=== PATIENT | female | born 1950 | race Caucasian/White ===

== ENCOUNTER 2016-11-21 13:38 | Emergency (ER) | payer MEDICARE, OTHER ==
--- NOTE | 2016-11-21 14:16 | ED ---
Fall HPI - General Chief Complaint: Fall Stated Complaint: Fall/Leg pain Time Seen by Provider: 11/21/16 14:02 Source: patient, family, RN notes reviewed, old records reviewed Mode of arrival: wheelchair - History of Present Illness Initial Comments: Patient is a 66-year-old female with chief complaint of left knee pain. Patient reports that she was standing on a bucket to fix her door frame. Patient reports that she stepped off the bucket and landed on her left knee and it bent forward. Patient has a history of a patellar fracture. She reports that 2 years ago she had multiple screws and wires placed in her knee. She reports that after the injury she was unable to ambulate. She denies any ankle pain and peripheral paresthesias. She reports that afterwards she put her knee in an immobilizer and came directly to the emergency department. She reports that she is unable to bear any weight on the left leg. Patient denies any recent fever, chills, shortness of breath, chest pain, back pain, abdominal pain , nausea vomiting, numbness or tingling, dysuria or hematuria, constipation or diarrhea, headaches or visual changes, or any other current symptoms. During her fall she denies any head injury or loss of consciousness or any other extremity injuries. - Related Data Home Medications Medication Instructions Recorded Confirmed Acid Drafter 1 tab PO DAILY PRN 08/14/14 09/15/14 Aspirin EC [Ecotrin] 325 mg PO DAILY 08/14/14 09/15/14 Fluticasone/Salmeterol [Advair 1 inhalation PO BID 08/14/14 09/15/14 250-50 Diskus] Levothyroxine Sodium [Synthroid] 25 mcg PO DAILY 08/14/14 09/15/14 Lisinopril-Hctz 10-12.5 mg 1 each PO DAILY 08/14/14 09/15/14 [Zestoretic 10-12.5] Loratadine [Claritin] 10 mg PO DAILY 08/14/14 09/15/14 Multivitamins, Thera [Multivitamin] 1 each PO DAILY 08/14/14 09/15/14 Potassium (Unknown Dose) 1 tab PO DAILY PRN 08/14/14 09/15/14 Ventolin Inhaler (Unknown Dose) 1 puff INHALATION DIRECTED PRN 08/14/1409/15 buPROPion SR [Wellbutrin Sr] 300 mg PO DAILY 08/14/14 09/15/14 Previous Rx's Medication Instructions Recorded Hydrocodone/Acetaminophen [[place] 1 each PO Q6HR PRN #20 tab 09/15/14 5-325] HYDROcodone/APAP 10-325MG [[place] 1 tab PO Q6H PRN #20 tab 11/21/16 10-325] Allergies Allergy/AdvReac Type Severity Reaction Status Date / Time No Known Allergies Allergy Verified 11/21/16 13:45 Review of Systems ROS Statement: Those systems with pertinent positive or pertinent negative responses have been documented in the HPI. ROS Other: All systems not noted in ROS Statement are negative. Past Medical History Past Medical History: COPD, Hypertension Additional Past Medical History / Comment(s): osteoporosis History of Any Multi-Drug Resistant Organisms: None Reported Past Surgical History: Hysterectomy, Joint Replacement, Orthopedic Surgery, Tonsillectomy Additional Past Surgical History / Comment(s): lt knee Past Psychological History: No Psychological Hx Reported Smoking Status: Current some day smoker Past Alcohol Use History: None Reported Past Drug Use History: None Reported General Exam - General Exam Comments Initial Comments: Pleasant 66-year-old female. No acute distress. Limitations: no limitations General appearance: alert, in no apparent distress Head exam: Present: atraumatic, normocephalic, normal inspection Eye exam: Present: normal appearance, PERRL, EOMI. Absent: scleral icterus, conjunctival injection, periorbital swelling ENT exam: Present: normal exam, normal oropharynx, mucous membranes moist, TM's normal bilaterally Neck exam: Present: normal inspection. Absent: tenderness, meningismus, lymphadenopathy Respiratory exam: Present: normal lung sounds bilaterally. Absent: respiratory distress, wheezes, rales, rhonchi, stridor Cardiovascular Exam: Present: regular rate, normal rhythm, normal heart sounds. Absent: systolic murmur, diastolic murmur, rubs, gallop, clicks GI/Abdominal exam: Present: soft, normal bowel sounds. Absent: distended, tenderness, guarding, rebound, rigid Extremities exam: Present: normal capillary refill. Absent: normal inspection, full ROM, tenderness, pedal edema, joint swelling, calf tenderness Left Knee exam: Present: tenderness, swelling (Patient has significant sent tenderness and swelling over the knee. Patient reports she is unable to flex or extend her knee or bear weight.), deformity. Absent: normal inspection, full ROM, abrasion, laceration, ecchymosis, crepitus, dislocation, erythema, effusion Lower Leg exam: Present: normal inspection, full ROM Ankle exam: Present: normal inspection, full ROM Foot/Toe exam: Present: normal inspection, full ROM Neurovascular tendon exam: Present: no vascular compromise Gait: not tested/not observed Back exam: Present: normal inspection Neurological exam: Present: alert, oriented X3, CN II-XII intact Psychiatric exam: Present: normal affect, normal mood Skin exam: Present: warm, dry, intact, normal color. Absent: rash Course Vital Signs 11/21/16 13:40 Temperature 97.0 F L Pulse Rate 93 Respiratory 20 Rate Blood Pressure 133/60 O2 Sat by Pulse 97 Oximetry Procedures - Orthopedic Splinting/Casting Injury #1 Side: left Lower Extremity Injury Location: knee Lower Extremity Immobilizer: knee immobilizer Medical Decision Making - Medical Decision Making Patient is a 6-year-old female with chief complaint of left knee pain after falling and tripping over the last standing on a bucket. Patient x-ray was reviewed and shows evidence of labial plateau fracture. She does have a previous history of patella fracture. She reports that her surgeon [facility]. She Wants Us to Contact Her Surgeon. We Did Contact with the Surgeon He Reports That She Should Be Placed in an Immobilizer and Follow-Up Tomorrow for That on Thursday with the Office. The Meantime Patient Needs to Remain Nonweightbearing and Ambulate with Crutches. Patient Was Given a Knee Immobilizer and a Prescription for Pain Medication and Crutches. Patient Understands That She Needs to Follow-Up As Soon As Possible. Patient Understands Treatment Plan Will Comply. - Radiology Data Radiology results: report reviewed Moderate knee joint effusion suspicion for nondisplaced intra-articular medial and lateral tibial plateau fractures. There may be minimal depression of the lateral tibial plateau. Disposition Clinical Impression: Fracture of left tibial plateau Disposition: HOME SELF-CARE Condition: Good Additional Instructions: Patient advised to call her orthopedic physician as soon as possible to schedule an appointment tomorrow. Only ambulate with crutches. Nonweightbearing over the leg until seen by orthopedic. Return to emergency department if any alarming signs or symptoms occur. Prescriptions: HYDROcodone/APAP 10-325MG [[place] 10-325] 1 tab PO Q6H PRN #20 tab PRN Reason: Pain Referrals: Douglas Caraballo MD [Primary Care Provider] - 1-2 days Pancho Calero, MODESTA [PHYSICIAN POWER TRANSFORMER ASSEMBLER] - 1-2 days Time of Disposition: 15:49
--- NOTE | 2016-11-21 14:47 | XR ---
EXAMINATION TYPE: XR knee 4V LT DATE OF EXAM: 11/21/2016 2:28 PM COMPARISON: 09/15/2014 HISTORY: 66-year-old female falling injury today, previous patellar surgery TECHNIQUE: 3 views FINDINGS: Previous tension screw fixation of the patella. The patellar fracture appears healed. There may be an osteochondral defect along the articular surface of the patella. On the oblique view, there is some intra-articular lucency seen at the level of the medial tibial plateau. There may be additional lucen cy which extends to the articular surface of the lateral tibial plateau which appears minimally depre ssed. Underlying moderate knee joint effusion. IMPRESSION: Moderate knee joint effusion and suspicion for nondisplaced, intra-articular medial and lateral tibia l plateau fractures. There may be minimal depression of the lateral tibial plateau.
[2016-11-21 16:14] VITALS: BP 136/69; PULSE 87; RESP 18; TEMP 97.9
== END 2016-11-21 16:23 | disposition home or self-care (01) ==
LOC: EC 13:38
DX: S82.102A Unspecified fracture of upper end of left tibia, initial encounter for closed fracture (principal); J44.9 Chronic obstructive pulmonary disease, unspecified; I10 Essential (primary) hypertension; F17.200 Nicotine dependence, unspecified, uncomplicated; Z79.82 Long term (current) use of aspirin; Z79.51 Long term (current) use of inhaled steroids; Z79.899 Other long term (current) drug therapy; W01.0XXA Fall on same level from slipping, tripping and stumbling without subsequent striking against object, initial encounter; Y92.009 Unspecified place in unspecified non-institutional (private) residence as the place of occurrence of the external cause
CPT/HCPCS: 99283

== ENCOUNTER → 2017-03-03 | Outpatient (CLI) | payer MEDICARE, OTHER ==
--- NOTE | 2017-03-04 10:51 | ECHOF ---
Referral Reason:SOB MEASUREMENTS -------- HEIGHT: 132.1 cm WEIGHT: 62.6 kg BP: IVSd: 1.2 cm (0.6 - 1.1) LVIDd: 3.6 cm (3.9 - 5.3) LVPWd: 1.1 cm (0.6 - 1.1) IVSs: 1.5 cm LVIDs: 3.0 cm LVPWs: 1.2 cm LA Diam: 3.0 cm (2.7 - 3.8) LAESV Index (A-L): 28.87 ml/m Ao Diam: 3.4 cm (2.0 - 3.7) AV Cusp: 1.8 cm (1.5 - 2.6) LA Diam: 3.8 cm (2.7 - 3.8) MV EXCURSION: 14.924 mm (> 18.000) MV EF SLOPE: 69 mm/s (70 - 150) EPSS: 0.3 cm MV E Azael: 0.73 m/s MV DecT: 225 ms MV A Azael: 1.21 m/s MV E/A Ratio: 0.60 FINDINGS -------- Sinus rhythm. This was a technically adequate study. There is mild concentric left ventricular hypertrophy. Overall left ventricular systolic function is low-normal with, an EF between 50 - 55 %. The right ventricle is normal in size. Normal LA size by volume 22+/-6 ml/m2. The right atrial size is normal. There is mild aortic valve sclerosis. There is no evidence of aortic regurgitation. Mild mitral annular calcification present. Mild mitral regurgitation is present. Mild tricuspid regurgitation present. There is no evidence of pulmonary hypertension. The right ventricular systolic pressure, as measured by Doppler, is {RVSP}. There is no pulmonic regurgitation present. The aortic root size is normal. There is no pericardial effusion. CONCLUSIONS -------- 1. There is mild concentric left ventricular hypertrophy. 2. Overall left ventricular systolic function is low-normal with, an EF between 50 - 55 %. 3. There is mild aortic valve sclerosis. 4. Mild mitral annular calcification present. 5. Mild mitral regurgitation is present. 6. Mild tricuspid regurgitation present. 7. There is no evidence of pulmonary hypertension. 8. The right ventricular systolic pressure, as measured by Doppler, is {RVSP}. 9. There is no pulmonic regurgitation present. PLANNING DIRECTOR: Annalisa Pearson RDCS
== END | disposition home or self-care (01) ==
LOC: RADECHMAIN 13:13
PROVIDERS: ATTEND Family Medicine
DX: I08.3 Combined rheumatic disorders of mitral, aortic and tricuspid valves (principal)
CPT/HCPCS: 93306

== ENCOUNTER → 2017-05-01 | Outpatient (CLI) | payer MEDICARE, OTHER ==
--- NOTE | 2017-05-01 13:20 | XR ---
EXAMINATION TYPE: XR shoulder complete LT DATE OF EXAM: 05/01/2017 COMPARISON: NONE HISTORY: Pain TECHNIQUE: Shoulder examined in 3 FINDINGS: The humeral head articulates with the glenoid. The acromio-clavicular junction is normal. No acute fractures or dislocations are evident. A follow up study can be performed 7-10 days from acute trauma for continued pain. IMPRESSION: 1. Normal Shoulder
== END | disposition home or self-care (01) ==
LOC: RADXRMAIN 12:38
PROVIDERS: ATTEND Family Medicine
DX: M25.512 Pain in left shoulder (principal)

== ENCOUNTER → 2017-05-12 | Outpatient (CLI) | payer MEDICARE, OTHER ==
--- NOTE | 2017-05-12 23:20 | MR ---
EXAMINATION TYPE: MR shoulder LT wo con DATE OF EXAM: 05/12/2017 COMPARISON: NONE HISTORY: Shoulder pain TECHNIQUE: Multiplanar, multisequence imaging of the left shoulder is performed without contrast. FINDINGS: There is shoulder joint effusion. The subscapularis tendon is intact. The glenoid doni appear intact . There is obliteration of the subacromial joint space with retraction of the supraspinatus tendon. T here is spurring at the AC joint. There is spurring at the glenohumeral joint. On the T2 images there is increased signal in the subchondral humeral head. This area has decreased signal on the T1 images . IMPRESSION: Large rotator cuff tear with retraction of the supraspinatus tendon. Severe subacromial joint space n arrowing and impingement. Shoulder joint effusion. 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
== END | disposition home or self-care (01) ==
LOC: RADMRIMAIN 15:57
PROVIDERS: ATTEND Family Medicine
DX: M75.102 Unspecified rotator cuff tear or rupture of left shoulder, not specified as traumatic (principal); M19.012 Primary osteoarthritis, left shoulder; M25.812 Other specified joint disorders, left shoulder

== ENCOUNTER → 2017-06-12 | Outpatient (CLI) | payer MEDICARE, OTHER ==
[2017-06-12 11:04] LABS: Blood Urea Nitrogen 11 mg/dL (7-17); Non-African American GFR(MDRD) >60 (>60 ml/min/1.73 sqM)
--- NOTE | 2017-06-12 13:06 | CT ---
EXAMINATION TYPE: CT soft tissue neck w con DATE OF EXAM: 06/12/2017 COMPARISON: NONE HISTORY: loss of voice CT DLP: 289.7 mGycm CONTRAST: Patient injected with 100 mL of Omnipaque 300. TECHNIQUE: Axial images at 3 mm thick sections. Reconstructed images in the coronal plane and sagitt al plane are reviewed. FINDINGS: Limited CT sections are obtained the lung apices. The lung apices appear clear. CT neck: The torus tubarius and fossa of Rosenmuller are normal. Mis Director spaces are normal. Para nasal sinuses and mastoid air cells are clear. Parotid glands appear normal and symmetrical. Submandibular glands, are normal. Parapharyngeal spac es are normal. No suspicious adenopathy within the neck is evident. There are scattered small lymph nodes in the jugulodigastric regions and in the anterior triangles. Tiny submental lymph nodes may be present. The hypopharynx appears within normal limits. There is asymmetry of the vocal cord level with a midline right vocal cord Thyroid as visualized is normal. Within the pretracheal space is a 3.7 x 2.5 cm mass. This is incompletely visualized. This extends to the right peribronchial level and out of the [id number]. Primary and metastatic lesion should be considered. Emphysematous changes are within the lung botello. There is a spiculated mass in the anter ior peripheral right upper lobe measuring an estimated 1.2 x 1.4 cm. Series 3 image 9 on lung windows . The aortopulmonic window appears clear. There is a left supraclavicular enlarged lymph node or mass just lateral to the thyroid measuring 3.4 x 3.4 cm. There are scattered enlarged but more intermediate-sized lymph nodes slightly enlarged by CT criteria within the left supraclavicular region measuring up to 1.0-1.2 cm in size. Osseous structures are normal. Some facet degenerative changes noted within the cervical spine. IMPRESSIONS: 1. Right apical spiculated mass with an enlarged mass or lymph node within the pretracheal mediastinu m suspicious for possible lung cancer. Metastatic disease could be considered. There are several left supraclavicular lymph nodes enlarged, the largest measuring 3.[address] chest is recommen ded for additional workup. 2. Results were called to the office by Dr. Gonzalze by telephone at the time of interpretation.
== END | disposition home or self-care (01) ==
LOC: RADCTMAIN 10:12
PROVIDERS: ATTEND Otolaryngology
DX: R59.0 Localized enlarged lymph nodes (principal)
CPT/HCPCS: 82565; 84520; 70491; 36415; Q9967

== ENCOUNTER → 2017-06-17 | Outpatient (CLI) | payer MEDICARE, OTHER ==
[2017-06-17 18:14] LABS: Blood Urea Nitrogen 14 mg/dL (7-17); Non-African American GFR(MDRD) >60 (>60 ml/min/1.73 sqM)
--- NOTE | 2017-06-18 08:11 | CT ---
EXAMINATION TYPE: CT chest w con DATE OF EXAM: 06/17/2017 COMPARISON: CT soft tissue neck dated 06/12/[address] thorax of 05-16-14. HISTORY: Hoarseness and abnormal neck scan CT DLP: 445 mGycm. Automated Exposure Control for Dose Reduction was Utilized. TECHNIQUE: CT scan of the thorax is performed following with IV Contrast, patient injected with 100 mL of Omnipaque 300. FINDINGS: LUNGS AND MEDIASTINUM: Superimposed upon a background of moderate centrilobular emphysematous changes and peripheral basilar intralobular septal thickening with few areas of early honeycombing in the li ngula suggesting UIP pattern of pulmonary process there is a right upper lobe spiculated nodule on se javier 4 image 17 that has developed from the prior exam of 05-16-14. This is subsolid with few periphera l air bronchograms with the predominant solid portion measuring only 5 mm at the right lateral margin , however within predominant nodule measures approximately 1.6 x 1.4 cm. Additionally soft tissue attenuated mass within the pretracheal and right paratracheal space is prese nt on series 3 image 19 measuring approximately 4.0 x 3.1 x 4.5 cm placing mass effect upon the trach ea at its right lateral margin and deviating it towards the left. Extensive left supraclavicular nichole opathy is also seen with mass effect upon the left lobe of the thyroid. Conglomeration of lymph nodes measures approximately 3.7 x 3.1 cm on series 3 image 7 creating mass effect upon the left subclavia n artery with smaller more superior and anterior lymph nodes also seen in the left supraclavicular re gion. Minimally enlarged 1.2 cm short axis right hilar lymph node is seen and prominent but nonenlarg ed subcarinal lymph node is present. Central calcification is seen within an inferior right hilar nod e near the azygos esophageal recess. No axillary or internal mammary adenopathy is seen. No epicardia l adenopathy. Calcified right lower lobe stable granulomas are present as well as subcentimeter left lower lobe sup erior segment pulmonary nodule on series 4 image 30 which is unchanged dating back to 2013 and should be considered benign. OTHER: Two sclerotic foci within the T1 and C6 vertebrae are appreciated on series 7 image 59 and cou ld relate to degenerative change or less likely osseous metastasis. IMPRESSION: 1. New spiculated subsolid right upper lobe pulmonary nodule measuring 1.6 x 1.4 cm highly concerning for malignancy such as adenocarcinoma superimposed upon moderate pulmonary emphysema with suggestion of peripheral basilar lower lung fibrosis. Percutaneous biopsy and/or staging PET CT could be perfor med. 2. Right pretracheal and paratracheal soft tissue mass that is favored to represent metastatic adenop athy rather than the patient's primary carcinoma. Left supraclavicular adenopathy measures up to 3.7 cm. 3. Sclerotic foci within the T1 and C6 vertebrae could relate to degenerative change or less likely o sseous metastasis. 4. Lower lobe nodules, stable from 2014 that should be considered benign sequela of granulomatous [place] nge rather than metastasis.
== END | disposition home or self-care (01) ==
LOC: RADCTMAIN 17:44
PROVIDERS: ATTEND Otolaryngology
DX: C34.11 Malignant neoplasm of upper lobe, right bronchus or lung (principal); J43.8 Other emphysema; M79.89 Other specified soft tissue disorders; G95.89 Other specified diseases of spinal cord
CPT/HCPCS: 82565; 84520; 71260; 36415; Q9967

== ENCOUNTER → 2017-07-04 | Outpatient (CLI) | payer MEDICARE, OTHER ==
--- NOTE | 2017-07-06 09:40 | PE ---
EXAMINATION TYPE: PET CT fusion skull to thigh DATE OF EXAM: 07/06/2017 CLINICAL HISTORY: Left-sided lung mass possible cancer TECHNIQUE: Following the intravenous administration of 15.02 mCi of F-18 FDG, whole body images are performed from the skull base to the midthigh. Images are reviewed on the computer in the coronal, axial, and sagittal planes. Reconstructed rotating images are created on independent workstation and reviewed on the computer. A non-contrast CT is performed in conjunction with the PET scan. COMPARISON: CT chest June 17, 2017. CT neck June 12, 2017. CT abdomen and pelvis April 27 FINDINGS: SKULL BASE AND NECK: Corresponding to recent neck CT at level of left thyroid gland supraclavicular region there is hypermetabolic large mass measuring 3.5 x 3.2 cm on axial image 49 with max SUV of 16 .61. There are several additional hypermetabolic subcentimeter lymph nodes seen near axial image 41 with m ax SUV of 9.23. CHEST, MEDIASTINUM, AND HILAR REGION: There is background of moderate emphysematous change. There is 8 x 6 mm hypermetabolic spiculated nodule right upper lobe on axial image 66, with mild hypermetaboli c uptake max SUV is 2.03. There is abnormal hypermetabolic right paratracheal/pericarinal lymph node measuring 2.9 x 2.6 cm on axial image 69 with max SUV of 16.39. Elevated left hemidiaphragm is present. ABDOMEN AND PELVIS: No suspicious hypermetabolic uptake is seen. No adrenal masses are noted. The leisa dder extends into right pelvis mimicking adnexal lesion. OSSEOUS STRUCTURES: No suspicious hypermetabolic uptake is present. OTHER CT: Visualized brain parenchyma shows periventricular low-attenuation consistent with product o f chronic small vessel ischemic change. There is moderate right greater than left calcified plaque at bilateral carotid bulbs. There is coronary artery calcification which is noted marker for coronary artery disease. Gallbladder has distended margins. Sigmoid colonic diverticulosis is present. Uterus is surgically absent or markedly atrophic in appearance. IMPRESSION: Left neck and right paratracheal metastatic adenopathy or neoplasm. Suspect additional gregg praclavicular subcentimeter adenopathy. Borderline right upper lobe subcentimeter nodule noted. No me tastatic disease below diaphragm identified.
== END | disposition home or self-care (01) ==
LOC: RADPETMAIN 12:14
PROVIDERS: ATTEND Internal Medicine Critical Care Medicine
DX: R91.1 Solitary pulmonary nodule (principal)
CPT/HCPCS: 78815; A9552

== ENCOUNTER 2018-01-11 15:49 | Inpatient (IN) | payer MEDICARE, OTHER ==
[2018-01-11] MEDS ORDERED: ALBUTEROL NEBULIZED 2.5 MG/3 ML INHALATION STA (16:09)
[2018-01-11] MEDS ORDERED: methylPREDNISolone SOD SUCCI 125 MG/2 ML VIAL IV STA (16:09)
[2018-01-11] MEDS ORDERED: IPRATROPIUM 0.5 MG/2.5 ML NEBU INHALATION STA (16:09)
--- NOTE | 2018-01-11 16:12 | ED ---
General Adult HPI - General Source: patient, RN notes reviewed Mode of arrival: wheelchair Limitations: no limitations <Kevin Rodriguez - Last Filed: 01/11/18 16:13> <Miguel A Li - Last Filed: 01/11/18 18:27> - General Chief complaint: Shortness of Breath Stated complaint: Sob Time Seen by Provider: 01/11/18 15:50 - History of Present Illness Initial comments: This is a 67-year-old female presents emergency Department complaining of shortness of breath. Patient states his been ongoing for a couple of weeks. Patient states she's had no pain. Patient denies any palpitations. Patient denies any fever chills. Patient states she does have a cough occasionally. Patient denies any oxygen at home. Patient denies headache patient denies numbness weakness. Patient denies any swelling legs or calf pain. Patient denies abdominal pain patient denies nausea vomiting diarrhea. Patient states she was diagnosed with lung cancer last March. Patient states she receiving chemotherapy. (Kevin Rodriguez) - Related Data Home Medications Medication Instructions Recorded Confirmed Levothyroxine Sodium [Synthroid] 25 mcg PO DAILY 08/14/14 01/11/18 Loratadine [Claritin] 10 mg PO DAILY 08/14/14 01/11/18 Albuterol Nebulized [Ventolin 2.5 mg INHALATION RT-Q6H PRN 07/03/17 01/11/18 Nebulized] Fluticasone/Salmeterol [Advair 1 inhalation PO RT-BID 07/03/17 01/11/18 500-50 Diskus] Tiotropium [place] [Spiriva] 1 cap INHALATION RT-DAILY 07/03/17 01/11/18 Acetaminophen-Codeine 300-30mg 1 tab PO Q6H PRN 01/11/18 01/11/18 [Tylenol #3] Albuterol Inhaler [Ventolin Hfa 1 - 2 puff INHALATION Q6HR PRN 01/11/18 01/11/18 Inhaler] LORazepam [Ativan] 0.5 mg PO Q6H PRN 01/11/18 01/11/18 Lisinopril-Hctz 20-25 mg 1 tab PO DAILY 01/11/18 01/11/18 [Zestoretic 20-25] Pyridoxine [Vitamin B-6] 50 mg PO BID 01/11/18 01/11/18 Sertraline [Zoloft] 50 mg PO DAILY 01/11/18 01/11/18 Sulfamethox-Tmp 800-160Mg [Bactrim 1 tab PO BID 01/11/18 01/11/18 DS 800-160 mg] predniSONE 10 mg PO DAILY 01/11/18 01/11/18 Allergies Allergy/AdvReac Type Severity Reaction Status Date / Time No Known Allergies Allergy Verified 01/11/18 17:39 Review of Systems ROS Other: All systems not noted in ROS Statement are negative. <Kevin Rodriguez - Last Filed: 01/11/18 16:13> ROS Other: All systems not noted in ROS Statement are negative. <Miguel A Li - Last Filed: 01/11/18 18:27> ROS Statement: Those systems with pertinent positive or pertinent negative responses have been documented in the HPI. Past Medical History Past Medical History: Cancer, COPD, Hypertension Additional Past Medical History / Comment(s): osteoporosis, lung cancer History of Any Multi-Drug Resistant Organisms: None Reported Past Surgical History: Hysterectomy, Orthopedic Surgery Additional Past Surgical History / Comment(s): lt knee - repaired, wires and pins holding knee together, right shoulder rotator cuff repair Past Anesthesia/Blood Transfusion Reactions: Postoperative Nausea & Vomiting ( PONV) Additional Past Anesthesia/Blood Transfusion Reaction / Comment(s): occasional nausea afterwards Past Psychological History: Depression Smoking Status: Current every day smoker Past Alcohol Use History: None Reported Past Drug Use History: None Reported <Kevin Rodriguez - Last Filed: 01/11/18 16:13> General Exam Limitations: no limitations <Kevin Rodriguez - Last Filed: 01/11/18 16:13> <Miguel A Li - Last Filed: 01/11/18 18:27> - General Exam Comments Initial Comments: GENERAL: Patient is well-developed and well-nourished. Patient is nontoxic and well- hydrated and is in mild distress. ENT: Neck is soft and supple. No significant lymphadenopathy is noted. Oropharynx is clear. Moist mucous membranes. EYES: The sclera were anicteric and conjunctiva were pink and moist. Extraocular movements were intact and pupils were equal round and reactive to light. Eyelids were unremarkable. PULMONARY: Patient is a very wheezing diffusely. CARDIOVASCULAR: There is a regular rate and rhythm without any murmurs gallops or rubs. ABDOMEN: Soft and nontender with normal bowel sounds. No palpable organomegaly was noted. There is no palpable pulsatile mass. SKIN: Skin is clear with no lesions or rashes and otherwise unremarkable. NEUROLOGIC: Patient is alert and oriented x3. Cranial nerves II through XII are grossly intact. Motor and sensory are also intact. Normal speech, volume and content. Symmetrical smile. MUSCULOSKELETAL: Normal extremities with adequate strength and full range of motion. No lower extremity swelling or edema. No calf tenderness. LYMPHATICS: No significant lymphadenopathy is noted PSYCHIATRIC: Normal psychiatric evaluation. (Kevin Rodriguez) Course <Kevin Rodriguez - Last Filed: 01/11/18 16:13> <Miguel A Li - Last Filed: 01/11/18 18:27> Vital Signs 01/11/18 01/11/18 01/11/18 15:50 16:39 17:02 Temperature 98 F Pulse Rate 121 H 107 H 110 H Respiratory 32 H Rate Blood Pressure 122/81 O2 Sat by Pulse 90 L Oximetry - Reevaluation(s) Reevaluation #1: 01/11/18 18:15 Evaluation the patient by me reveals diminished breath sounds patient is short of breath has some expiratory wheezing. She states she had to stand up to be able to breathe better. 01/11/18 18:16 The patient does have a repeat DuoNeb treatment in order (Miguel A Li) Reevaluation #2: 01/11/18 18:26 I did discuss findings with the admitting service patient will be admitted consultation with pulmonary medicine (Miguel A Li) Medical Decision Making <Kevin Rodriguez - Last Filed: 01/11/18 16:13> - Lab Data Result diagrams: 01/11/18 16:10 01/11/18 16:10 <Miguel A Li - Last Filed: 01/11/18 18:27> - Medical Decision Making EKG shows sinus tachycardia at 112 bpm MS interval 128 QRSs 84 QT interval 320 QTC is 436. There is no ST segment elevation or depression. Patient received a double treatment of albuterol and Atrovent. Patient also received Solu-Medrol. The patient's care will be transferred to Dr. Li 5 PM (Kevin Rodriguez) - Lab Data Lab Results 01/11/18 01/11/18 01/11/18 Range/Units 16:10 16:10 16:10 WBC 7.0 (3.8-10.6) k/uL RBC 3.70 L (3.80-5.40) m/uL Hgb 12.8 (11.4-16.0) gm/dL Hct 36.7 (34.0-46.0) % MCV 99.3 (80.0-100.0) fL MCH 34.6 (25.0-35.0) pg MCHC 34.9 (31.0-37.0) g/dL RDW 14.4 (11.5-15.5) % Plt Count 230 (150-450) k/uL Neutrophils % 81 % Lymphocytes % 12 % Monocytes % 6 % Eosinophils % 0 % Basophils % 0 % Neutrophils # 5.6 (1.3-7.7) k/uL Lymphocytes # 0.9 L (1.0-4.8) k/uL Monocytes # 0.4 (0-1.0) k/uL Eosinophils # 0.0 (0-0.7) k/uL Basophils # 0.0 (0-0.2) k/uL PT (9.0-12.0) sec INR (<1.2) APTT (22.0-30.0) sec D-Dimer (<0.60) mg/L FEU Sodium 120 L* (137-145) mmol/L Potassium 4.1 (3.5-5.1) mmol/L Chloride 84 L (98-107) mmol/L Carbon Dioxide 26 (22-30) mmol/L Anion Gap 10 mmol/L BUN 16 (7-17) mg/dL Creatinine 0.57 (0.52-1.04) mg/dL Est GFR (CKD-EPI)AfAm >90 (>60 ml/min/1.73 sqM) Est GFR (CKD-EPI)NonAf >90 (>60 ml/min/1.73 sqM) Glucose 105 H (74-99) mg/dL Calcium 9.1 (8.4-10.2) mg/dL Magnesium 1.4 L (1.6-2.3) mg/dL Total Bilirubin 0.4 (0.2-1.3) mg/dL AST 25 (14-36) U/L ALT 30 (9-52) U/L Alkaline Phosphatase 73 (38-126) U/L Total Creatine Kinase 80 (30-135) U/L CK-MB (CK-2) 3.8 H* (0.0-2.4) ng/mL CK-MB (CK-2) Rel Index 4.8 Troponin I <0.012 (0.000-0.034) ng/mL Total Protein 6.3 (6.3-8.2) g/dL Albumin 4.1 (3.5-5.0) g/dL 01/11/18 Range/Units 16:10 WBC (3.8-10.6) k/uL RBC (3.80-5.40) m/uL Hgb (11.4-16.0) gm/dL Hct (34.0-46.0) % MCV (80.0-100.0) fL MCH (25.0-35.0) pg MCHC (31.0-37.0) g/dL RDW (11.5-15.5) % Plt Count (150-450) k/uL Neutrophils % % Lymphocytes % % Monocytes % % Eosinophils % % Basophils % % Neutrophils # (1.3-7.7) k/uL Lymphocytes # (1.0-4.8) k/uL Monocytes # (0-1.0) k/uL Eosinophils # (0-0.7) k/uL Basophils # (0-0.2) k/uL PT 9.5 (9.0-12.0) sec INR 1.0 (<1.2) APTT 22.1 (22.0-30.0) sec D-Dimer 0.46 (<0.60) mg/L FEU Sodium (137-145) mmol/L Potassium (3.5-5.1) mmol/L Chloride (98-107) mmol/L Carbon Dioxide (22-30) mmol/L Anion Gap mmol/L BUN (7-17) mg/dL Creatinine (0.52-1.04) mg/dL Est GFR (CKD-EPI)AfAm (>60 ml/min/1.73 sqM) Est GFR (CKD-EPI)NonAf (>60 ml/min/1.73 sqM) Glucose (74-99) mg/dL Calcium (8.4-10.2) mg/dL Magnesium (1.6-2.3) mg/dL Total Bilirubin (0.2-1.3) mg/dL AST (14-36) U/L ALT (9-52) U/L Alkaline Phosphatase (38-126) U/L Total Creatine Kinase (30-135) U/L CK-MB (CK-2) (0.0-2.4) ng/mL CK-MB (CK-2) Rel Index Troponin I (0.000-0.034) ng/mL Total Protein (6.3-8.2) g/dL Albumin (3.5-5.0) g/dL Critical Care Time <Kevin Rodriguez - Last Filed: 01/11/18 16:13> Critical Care Time: Yes <Miguel A Li - Last Filed: 01/11/18 18:27> Critical Care Time: 31 minutes of critical care time which includes initial sign out as well as reevaluation the patient discussion with the admitting physician discussed case with the patient documentation the above and admission orders. (Miguel A Li) Disposition <Kevin Rodriguez - Last Filed: 01/11/18 16:13> <Miguel A Li - Last Filed: 01/11/18 18:27> Clinical Impression: Acute exacerbation of chronic obstructive airways disease, Adult respiratory distress syndrome, Lung cancer, Hyponatremia Disposition: ADMITTED IP TO THIS [facility] Condition: Stable Referrals: Miguel A Lucia DO [Primary Care Provider] - 1-2 days
[2018-01-11 16:30] LABS: Basophils % (A) 0 %; Eosinophils % (A) 0 %; HCT 36.7 % (34.0-46.0); HGB 12.8 gm/dL (11.4-16.0); Lymphocytes # (A) 0.9 k/uL (1.0-4.8); Lymphocytes % (A) 12 %; MCH 34.6 pg (25.0-35.0); MCHC 34.9 g/dL (31.0-37.0); MCV 99.3 fL (80.0-100.0); Mean Platelet Volume 7.2; Monocytes # (A) 0.4 k/uL (0-1.0); Monocytes % (A) 6 %; Neutrophils # (A) 5.6 k/uL (1.3-7.7); Neutrophils % (A) 81 %; Platelet Count 230 k/uL (150-450); RDW 14.4 % (11.5-15.5)
[2018-01-11 16:42] LABS: ALT 30 U/L (9-52); AST 25 U/L (14-36); Albumin 4.1 g/dL (3.5-5.0); Alkaline Phosphatase 73 U/L (38-126); Anion Gap 10 mmol/L; Blood Urea Nitrogen 16 mg/dL (7-17); Calcium 9.1 mg/dL (8.4-10.2); Carbon Dioxide 26 mmol/L (22-30); Chloride 84 mmol/L (98-107); Glucose 105 mg/dL (74-99); Magnesium 1.4 mg/dL (1.6-2.3); Potassium 4.1 mmol/L (3.5-5.1); Total Bilirubin 0.4 mg/dL (0.2-1.3); Total Protein 6.3 g/dL (6.3-8.2)
[2018-01-11 16:50] LABS: Creatine Kinase 80 U/L (30-135)
[2018-01-11 16:54] LABS: Sodium 120 mmol/L (137-145)
[2018-01-11 16:58] LABS: D-Dimer 0.46 mg/L FEU (<0.60); Partial Thromboplastin Time 22.1 sec (22.0-30.0); Prothrombin Time 9.5 sec (9.0-12.0)
[2018-01-11 17:03] LABS: Troponin I <0.012 ng/mL (0.000-0.034)
[2018-01-11 17:09] LABS: Creatine Kinase MB 3.8 ng/mL (0.0-2.4)
--- NOTE | 2018-01-11 17:23 | XR ---
EXAMINATION TYPE: XR chest 2V DATE OF EXAM: 01/11/2018 COMPARISON: Chest x-ray [address] chest June 17, 2017. PET CT July 04, 2017. HISTORY: Shortness of breath for 2 weeks. TECHNIQUE: Frontal and lateral views of the chest are obtained. FINDINGS: There is underlying emphysematous change redemonstrated. There is persistent left suprahil ar scarring. Calcified granuloma right lung base is redemonstrated laterally. No new suspicious focal airspace opacity, pleural effusion, or pneumothorax is present. The cardiac silhouette size is stabl e and within normal limits with atherosclerotic aorta. Right paratracheal adenopathy on PET/CT is les s well-seen on x-ray. Improvement in right paratracheal thickness is noted. The osseous structures r emain demineralized. Surgical changes right humeral head level are redemonstrated. There is persisten t right basilar scarring and/or atelectasis. Resection of distal right clavicle is noted. IMPRESSION: Chronic changes without acute pulmonary process.
[2018-01-11] MEDS ORDERED: MAGNESIUM SULFATE-D5W PMX 1 GM in DEXTROSE/WATER 1 100ML.BAG IVPB ONE (18:14)
[2018-01-11] MEDS ORDERED: IPRATROPIUM-ALBUTEROL 3 ML NEB INHALATION STA (18:14)
[2018-01-11] MEDS ORDERED: LORazepam 1 MG TAB PO STA (18:19)
[2018-01-11] MEDS ORDERED: Acetaminophen-Codeine 300-30mg TAB PO STA (18:20)
--- NOTE | 2018-01-11 19:57 | P.HPIM ---
History of Present Illness This is a pleasant 67-year-old female with known history of non-small cell lung cancer and COPD came in with complaints of shortness of breath has been going on for about a week much worse today and unable to cough up anything denied any fever chills chest x-ray did not show any pneumonic process patient doesn't use any onset at home. Patient is on Bactrim at home. Patient is also found to be hyponatremic is on diuretic therapy as well as Bactrim. Patient is feeling better now up to systemic steroids Review of Systems REVIEW OF SYSTEMS: CONSTITUTIONAL: No fever, no malaise, no fatigue. HEENT: No recent visual problems or hearing problems. Denied any sore throat. CARDIOVASCULAR: No chest pain, orthopnea, PND, no palpitations, no syncope. PULMONARY: In HPI, does have cough without any sputum production GASTROINTESTINAL: No diarrhea, no nausea, no vomiting, no abdominal pain. Normoactive bowel sounds. NEUROLOGICAL: No headaches, no weakness, no numbness. HEMATOLOGICAL: Denies any bleeding or petechiae. GENITOURINARY: Denies any burning micturition, frequency, or urgency. MUSCULOSKELETAL/RHEUMATOLOGICAL: Denies any joint pain, swelling, or any muscle pain. ENDOCRINE: Denies any polyuria or polydipsia. The rest of the 14-point review of systems is negative. Past Medical History Past Medical History: Cancer, COPD, Hypertension Additional Past Medical History / Comment(s): osteoporosis, lung cancer History of Any Multi-Drug Resistant Organisms: None Reported Past Surgical History: Hysterectomy, Orthopedic Surgery Additional Past Surgical History / Comment(s): lt knee - repaired, wires and pins holding knee together, right shoulder rotator cuff repair Past Anesthesia/Blood Transfusion Reactions: Postoperative Nausea & Vomiting ( PONV) Additional Past Anesthesia/Blood Transfusion Reaction / Comment(s): occasional nausea afterwards Past Psychological History: Depression Smoking Status: Current every day smoker Past Alcohol Use History: None Reported Past Drug Use History: None Reported Medications and Allergies Home Medications Medication Instructions Recorded Confirmed Type Levothyroxine Sodium [Synthroid] 25 mcg PO DAILY 08/14/14 01/11/18 History Loratadine [Claritin] 10 mg PO DAILY 08/14/14 01/11/18 History Albuterol Nebulized [Ventolin 2.5 mg INHALATION RT-Q6H PRN 07/03/17 01/11/18 History Nebulized] Fluticasone/Salmeterol [Advair 1 inhalation PO RT-BID 07/03/17 01/11/18 History 500-50 Diskus] Tiotropium [place] [Spiriva] 1 cap INHALATION RT-DAILY 07/03/17 01/11/18 History Acetaminophen-Codeine 300-30mg 1 tab PO Q6H PRN 01/11/18 01/11/18 History [Tylenol #3] Albuterol Inhaler [Ventolin Hfa 1 - 2 puff INHALATION Q6HR PRN 01/11/18 History Inhaler] LORazepam [Ativan] 0.5 mg PO Q6H PRN 01/11/18 01/11/18 History Lisinopril-Hctz 20-25 mg 1 tab PO DAILY 01/11/18 01/11/18 History [Zestoretic 20-25] Pyridoxine [Vitamin B-6] 50 mg PO BID 01/11/18 01/11/18 History Sertraline [Zoloft] 50 mg PO DAILY 01/11/18 01/11/18 History Sulfamethox-Tmp 800-160Mg [Bactrim 1 tab PO BID 01/11/18 01/11/18 History DS 800-160 mg] predniSONE 10 mg PO DAILY 01/11/18 01/11/18 History Allergies Allergy/AdvReac Type Severity Reaction Status Date / Time No Known Allergies Allergy Verified 01/11/18 17:39 Physical Exam Vitals: Vital Signs Temp Pulse Pulse Resp BP BP Pulse Ox 01/11/18 19:27 97.3 F L 111 H 17 131/71 92 L 01/11/18 19:00 98.4 F 103 H 20 115/53 98 01/11/18 18:49 104 H 01/11/18 18:37 107 H 01/11/18 18:33 98.4 F 104 H 20 90/55 96 01/11/18 17:02 110 H 01/11/18 16:39 107 H 01/11/18 15:50 98 F 121 H 32 H 122/81 90 L Intake and Output 01/11/18 01/11/18 01/11/18 06:59 14:59 22:59 Other: Weight 44.906 kg PHYSICAL EXAMINATION: GENERAL: The patient is alert and oriented x3, not in any acute distress. Thin built cachectic on oxygen HEENT: Pupils are round and equally reacting to light. EOMI. No scleral icterus. No conjunctival pallor. Normocephalic, atraumatic. No pharyngeal erythema. No thyromegaly. CARDIOVASCULAR: S1 and S2 present. No murmurs, rubs, or gallops. PULMONARY: Decreased air entry into bilateral lung botello expiratory wheezing was appreciated. ABDOMEN: Soft, nontender, nondistended, normoactive bowel sounds. No palpable organomegaly. MUSCULOSKELETAL: No joint swelling or deformity. EXTREMITIES: No cyanosis, clubbing, or pedal edema. NEUROLOGICAL: Gross neurological examination did not reveal any focal deficits. SKIN: No rashes. Results CBC & Chem 7: 01/11/18 16:10 01/11/18 16:10 Labs: Abnormal Lab Results - Last 24 Hours (Table) 01/11/18 01/11/18 01/11/18 Range/Units 16:10 16:10 16:10 RBC 3.70 L (3.80-5.40) m/uL Lymphocytes # 0.9 L (1.0-4.8) k/uL Sodium 120 L* (137-145) mmol/L Chloride 84 L (98-107) mmol/L Glucose 105 H (74-99) mg/dL Magnesium 1.4 L (1.6-2.3) mg/dL CK-MB (CK-2) 3.8 H* (0.0-2.4) ng/mL Assessment and Plan Plan: -Shortness of breath: Secondary to COPD exacerbation patient has systemic strides and initial treatments to be continued and Bactrim dysphagia patient was started on cyclic Bactrim is being discontinued because of hyponatremia. -Hyponatremia probably secondary to hydrochlorothiazide as well as Bactrim both of which will be discontinued and patient was started on IV fluids and we will obtain serum osmolality urine loss molality TSH urine random sodium, cannot completely rule out SIADH. [place]- -Continued and he could use: Counseling was provided -Non-small cell lung cancer: Patient is receiving chemotherapy which will be continued. -Hypertension -Hypothyroidism: TSH will be obtained and continue with levothyroxine.
[2018-01-11] MEDS: IPRATROPIUM-ALBUTEROL 3 ML NEB INHALATION SCH (19:58)
[2018-01-11] MEDS: SYMBICORT 160-4.5 MCG INHALER INHALATION SCH ×2 (19:58→20:38)
[2018-01-11] MEDS ORDERED: SULFAMETHOX-TMP 800-160MG 1 EACH TAB PO SCH (21:00)
[2018-01-11] MEDS: DOXYCYCLINE MONOHYDRATE 100 MG CAPSULE PO SCH (21:04)
[2018-01-11] MEDS: PYRIDOXINE 50 MG TAB PO SCH (21:04)
[2018-01-11] MEDS: NICOTINE 21MG/24HR PATCH TRANSDERM SCH (21:05)
[2018-01-11] MEDS: SODIUM CHLORIDE 0.9% 1,000 ML IV SCH (21:05)
[2018-01-12] MEDS: methylPREDNISolone SOD SUCCI 125 MG/2 ML VIAL IV SCH ×4 (00:05→17:22)
[2018-01-12] MEDS: IPRATROPIUM-ALBUTEROL 3 ML NEB INHALATION SCH ×7 (00:29→23:15)
[2018-01-12] MEDS: Acetaminophen-Codeine 300-30mg TAB PO PRN ×3 (04:13→19:40)
[2018-01-12] MEDS: LORazepam 0.5 MG TAB PO PRN ×3 (04:14→19:40)
[2018-01-12] MEDS: LEVOTHYROXINE 25 MCG TAB PO SCH (06:22)
[2018-01-12] MEDS: LORATADINE 10 MG TAB PO SCH (07:29)
[2018-01-12] MEDS: DOXYCYCLINE MONOHYDRATE 100 MG CAPSULE PO SCH ×2 (07:29→21:40)
[2018-01-12] MEDS: PYRIDOXINE 50 MG TAB PO SCH ×2 (07:29→21:40)
[2018-01-12] MEDS: SERTRALINE 50 MG TAB PO SCH (07:29)
[2018-01-12] MEDS: NICOTINE 21MG/24HR PATCH TRANSDERM SCH (07:29)
[2018-01-12] MEDS: SODIUM CHLORIDE 0.9% 1,000 ML IV SCH (07:30)
[2018-01-12] MEDS: SYMBICORT 160-4.5 MCG INHALER INHALATION SCH (08:31)
[2018-01-12] MEDS: IPRATROPIUM 0.5 MG/2.5 ML NEBU INHALATION SCH ×2 (08:32→12:25)
[2018-01-12 08:53] LABS: MCH 35.6 pg (25.0-35.0); MCHC 35.2 g/dL (31.0-37.0); Macrocytosis Slight; Mean Platelet Volume 7.4; Platelet Count 238 k/uL (150-450); RBC 3.67 m/uL (3.80-5.40); RDW 14.1 % (11.5-15.5); WBC 3.8 k/uL (3.8-10.6)
[2018-01-12] MEDS ORDERED: LISINOPRIL-HCTZ 20-25 MG 1 EACH TAB PO SCH (09:00)
--- NOTE | 2018-01-12 09:03 | P.CNPUL ---
History of Present Illness Consult date: 01/12/18 Reason for consult: dyspnea, COPD, hypoxemia, lung mass, abnormal CXR/CT Chief complaint: Shortness of breath History of present illness: Pulmonary consult dated 01/12/2018 67-year-old female with history of COPD and lung cancer. She is well-known to me and I did see her in the office over the last week or 2. She has a history of quite severe COPD and a history of lung cancer. She presents to the emergency department with increasing shortness of breath. She apparently called the office and stated she wasn't getting better despite the fact that we gave her Depo-Medrol prednisone and antibiotics. She was seen in the emergency room by Dr. Rodriguez admitted to the hospital for diagnosis of COPD exacerbation. She was diagnosed with lung cancer by me back in March 2017. The patient had been receiving chemotherapy. The patient denies any fever or chills. No chest pain. Coughing but not producing much phlegm. Other available wheezing. Certainly short of breath. She has a history of COPD, hypertension, lung cancer , osteoporosis, and hypothyroidism. Review of Systems I point review of system is positive for shortness of breath cough wheezing chest congestion and minimal phlegm production. She apparently did not respond to the Depo-Medrol prednisone and Bactrim that I gave her the office. Past Medical History Past Medical History: Cancer, COPD, GERD/Reflux, Hypertension, Thyroid Disorder Additional Past Medical History / Comment(s): osteoporosis, lung cancer(non small cell-dx in ) stated done with chemo, emphysema,diverticulitis, "inner arties in head are blocked", beginnings of catarcts.arthritis in choulders and hips. "sometimes i have to put a thickener in my coffee and i can' t eat rice". History of Any Multi-Drug Resistant Organisms: None Reported Past Surgical History: Hysterectomy, Orthopedic Surgery Additional Past Surgical History / Comment(s): lt knee patella- repaired, wires and pins holding knee together, right shoulder rotator cuff repair, colonosocpy , lung bx. Past Anesthesia/Blood Transfusion Reactions: Motion Sickness, Postoperative Nausea & Vomiting (PONV) Additional Past Anesthesia/Blood Transfusion Reaction / Comment(s): occasional nausea afterwards Smoking Status: Current every day smoker - Past Family History Father History Unknown: Yes Mother History Unknown: Yes Medications and Allergies Home Medications Medication Instructions Recorded Confirmed Type Levothyroxine Sodium [Synthroid] 25 mcg PO DAILY 08/14/14 01/11/18 History Loratadine [Claritin] 10 mg PO DAILY 08/14/14 01/11/18 History Albuterol Nebulized [Ventolin 2.5 mg INHALATION RT-Q6H PRN 07/03/17 01/11/18 History Nebulized] Fluticasone/Salmeterol [Advair 1 inhalation PO RT-BID 07/03/17 01/11/18 History 500-50 Diskus] Tiotropium [place] [Spiriva] 1 cap INHALATION RT-DAILY 07/03/17 01/11/18 History Acetaminophen-Codeine 300-30mg 1 tab PO Q6H PRN 01/11/18 01/11/18 History [Tylenol #3] Albuterol Inhaler [Ventolin Hfa 1 - 2 puff INHALATION Q6HR PRN 01/11/18 History Inhaler] LORazepam [Ativan] 0.5 mg PO Q6H PRN 01/11/18 01/11/18 History Lisinopril-Hctz 20-25 mg 1 tab PO DAILY 01/11/18 01/11/18 History [Zestoretic 20-25] Pyridoxine [Vitamin B-6] 50 mg PO BID 01/11/18 01/11/18 History Sertraline [Zoloft] 50 mg PO DAILY 01/11/18 01/11/18 History Sulfamethox-Tmp 800-160Mg [Bactrim 1 tab PO BID 01/11/18 01/11/18 History DS 800-160 mg] predniSONE 10 mg PO DAILY 01/11/18 01/11/18 History Allergies Allergy/AdvReac Type Severity Reaction Status Date / Time No Known Allergies Allergy Verified 01/11/18 17:39 Physical Exam Osteopathic Statement: *. No significant issues noted on an osteopathic structural exam other than those noted in the History and Physical/Consult. Vitals: Vital Signs Temp Pulse Pulse Resp BP BP Pulse Ox 01/12/18 08:44 112 H 01/12/18 08:32 116 H 01/12/18 05:51 96.7 F L 101 H 18 118/66 99 01/12/18 03:44 88 01/12/18 03:33 84 01/12/18 00:41 96 01/12/18 00:30 96 01/11/18 22:23 98.8 F 103 H 17 100/54 98 01/11/18 19:56 96 01/11/18 19:27 97.3 F L 111 H 17 131/71 92 L 01/11/18 19:00 98.4 F 103 H 20 115/53 98 01/11/18 18:49 104 H 01/11/18 18:37 107 H 01/11/18 18:33 98.4 F 104 H 20 90/55 96 01/11/18 17:02 110 H 01/11/18 16:39 107 H 01/11/18 15:50 98 F 121 H 32 H 122/81 90 L Intake and Output 01/11/18 01/12/18 01/12/18 22:59 06:59 14:59 Other: Voiding Method Toilet # Voids 1 3 Weight 44.906 kg No acute distress, oriented 3. Nasal O2 in place. HEENT examination is grossly unremarkable. Mucous membranes are moist. No oral lesions. Neck supple. Full range of motion. No adenopathy thyromegaly or neck vein distention. Cardiovascular examination reveals regular rhythm rate. S1-S2 normal. No S3 or S4. No discernible murmur noted. Lungs reveal bilateral expiratory wheezes. A few scattered rhonchi noted. Breath sounds are equal bilaterally but diminished throughout.. Abdomen soft bowel sounds are heard. No masses or tenderness. Extremities are intact. No cyanosis clubbing or edema. Skin is without rash or lesion. Neurologic examination is brief but nonfocal. Results - Laboratory Findings CBC and BMP: 01/11/18 16:10 01/11/18 16:10 PT/INR, D-dimer PT 9.5 sec (9.0-12.0) 01/11/18 16:10 INR 1.0 (<1.2) 01/11/18 16:10 D-Dimer 0.46 mg/L FEU (<0.60) 01/11/18 16:10 Abnormal lab findings: Abnormal Labs 01/11/18 01/11/18 01/11/18 16:10 16:10 16:10 RBC 3.70 L Lymphocytes # 0.9 L Sodium 120 L* Chloride 84 L Glucose 105 H Osmolality Magnesium 1.4 L CK-MB (CK-2) 3.8 H* Ur Random Sodium 01/11/18 01/12/18 16:10 03:35 RBC Lymphocytes # Sodium Chloride Glucose Osmolality 252 L Magnesium CK-MB (CK-2) Ur Random Sodium 14 L - Diagnostic Findings Chest x-ray: image reviewed (X-ray labs and medications are reviewed.) Assessment and Plan Assessment: Assessment COPD exacerbation complicated by tracheobronchitis. History of lung cancer History of hypothyroidism History of hypertension History of osteoporosis Hyponatremia Ongoing tobacco use with nicotine addiction Plan: Plan dated 01/12/2018 The patient's medications will be reviewed. X-rays reviewed. We'll make sure the patient's on systemic corticosteroids doing them and long-acting beta agonist along with inhaled corticosteroid. We'll also make sure that she gets antibiotic orally. Overall prognosis is poor. She continues to smoke cigarettes. She did not respond to aggressive outpatient therapy. We'll continue to follow. Time with Patient: Greater than 30
[2018-01-12 09:14] LABS: Anion Gap 10 mmol/L; Blood Urea Nitrogen 16 mg/dL (7-17); Calcium 8.8 mg/dL (8.4-10.2); Carbon Dioxide 27 mmol/L (22-30); Chloride 88 mmol/L (98-107); Glucose 136 mg/dL (74-99); Potassium 4.4 mmol/L (3.5-5.1); Sodium 125 mmol/L (137-145)
--- NOTE | 2018-01-12 16:53 | P.PN ---
Subjective 67-year-old female admitted for acute hypercapnic respiratory failure secondary to COPD exacerbation patient continues to wheeze Patient's hyponatremia improved patient's urinary sodium is only 8 consistent with hypovolemic hyponatremia. Continue with IV fluids. As per the patient shortness of breath improved. Constitutional: Denied any fatigue denied any fever. Cardio vascular: denied any chest pain, palpitations Gastrointestinal denied any nausea vomiting Pulmonary: As mentioned in the interval history Neurologic denied any new focal deficits Objective - Vital Signs Vital signs: Vital Signs Temp 97.1 F L 01/12/18 14:05 Pulse 100 01/12/18 16:47 Resp 20 01/12/18 14:05 BP 162/86 01/12/18 14:05 Pulse Ox 91 L 01/12/18 14:05 Intake & Output 01/11/18 01/12/18 01/12/18 18:59 06:59 18:59 Weight 44.906 kg Other: Voiding Method Toilet # Voids 3 1 - Exam PHYSICAL EXAMINATION: GENERAL: The patient is alert and oriented x3, not in any acute distress. Thin built cachectic on oxygen HEENT: Pupils are round and equally reacting to light. EOMI. No scleral icterus. No conjunctival pallor. Normocephalic, atraumatic. No pharyngeal erythema. No thyromegaly. CARDIOVASCULAR: S1 and S2 present. No murmurs, rubs, or gallops. PULMONARY: Decreased air entry into bilateral lung botello expiratory wheezing was appreciated. ABDOMEN: Soft, nontender, nondistended, normoactive bowel sounds. No palpable organomegaly. MUSCULOSKELETAL: No joint swelling or deformity. EXTREMITIES: No cyanosis, clubbing, or pedal edema. NEUROLOGICAL: Gross neurological examination did not reveal any focal deficits. SKIN: No rashes. - Labs CBC & Chem 7: 01/12/18 07:47 01/12/18 07:47 Labs: Abnormal Lab Results - Last 24 Hours (Table) 01/11/18 01/11/18 01/11/18 Range/Units 16:10 16:10 16:10 RBC (3.80-5.40) m/uL MCV (80.0-100.0) fL MCH (25.0-35.0) pg Sodium 120 L* (137-145) mmol/L Chloride 84 L (98-107) mmol/L Creatinine (0.52-1.04) mg/dL Glucose 105 H (74-99) mg/dL Osmolality 252 L (280-301) mosm/kg Magnesium 1.4 L (1.6-2.3) mg/dL CK-MB (CK-2) 3.8 H* (0.0-2.4) ng/mL Ur Random Sodium (30-90) mmol/L 01/12/18 01/12/18 01/12/18 Range/Units 03:35 07:47 07:47 RBC 3.67 L (3.80-5.40) m/uL MCV 101.0 H (80.0-100.0) fL MCH 35.6 H (25.0-35.0) pg Sodium 125 L (137-145) mmol/L Chloride 88 L (98-107) mmol/L Creatinine 0.48 L (0.52-1.04) mg/dL Glucose 136 H (74-99) mg/dL Osmolality (280-301) mosm/kg Magnesium (1.6-2.3) mg/dL CK-MB (CK-2) (0.0-2.4) ng/mL Ur Random Sodium 14 L (30-90) mmol/L Assessment and Plan Plan: -Shortness of breath: Secondary to COPD exacerbation patient has systemic steroids and elevation of inhalational treatments to be continued and Bactrim discontinued atient was started on doxycycline was started -Hyponatremia probably secondary to hydrochlorothiazide as well as Bactrim both of which will be discontinued and patient was started on IV fluids and we will with improved sodium patient probably has hypovolemic hyponatremia patient's urinary sodium is only 8, can you with IV fluids -Continued and he could use: Counseling was provided -Non-small cell lung cancer: Patient is receiving chemotherapy which will be continued. -Hypertension -Hypothyroidism: TSH to normal. Continue with levothyroxine
[2018-01-12] MEDS: FORMOTEROL FUMARATE 20 MCG/2 ML NEBU INHALATION SCH (19:34)
[2018-01-12] MEDS: BUDESONIDE 1 MG/2 ML NEBU INHALATION SCH (19:34)
[2018-01-12] MEDS ORDERED: CALCIUM CARBONATE 500 MG CHEWABLE PO PRN (21:03)
[2018-01-12] MEDS: PANTOPRAZOLE 40 MG TABLET PO SCH (21:39)
[2018-01-13] MEDS: SODIUM CHLORIDE 0.9% 1,000 ML IV SCH ×2 (00:33→09:10)
[2018-01-13] MEDS: methylPREDNISolone SOD SUCCI 125 MG/2 ML VIAL IV SCH ×5 (00:34→23:28)
[2018-01-13] MEDS: IPRATROPIUM-ALBUTEROL 3 ML NEB INHALATION SCH ×5 (03:37→19:31)
[2018-01-13] MEDS: LORazepam 0.5 MG TAB PO PRN ×4 (05:12→23:29)
[2018-01-13] MEDS: Acetaminophen-Codeine 300-30mg TAB PO PRN ×4 (05:12→23:29)
[2018-01-13] MEDS: LEVOTHYROXINE 25 MCG TAB PO SCH (06:35)
[2018-01-13] MEDS: BUDESONIDE 1 MG/2 ML NEBU INHALATION SCH ×2 (07:34→19:31)
[2018-01-13] MEDS: FORMOTEROL FUMARATE 20 MCG/2 ML NEBU INHALATION SCH ×2 (07:34→19:31)
[2018-01-13] MEDS: NICOTINE 21MG/24HR PATCH TRANSDERM SCH (09:08)
[2018-01-13] MEDS: LORATADINE 10 MG TAB PO SCH (09:08)
[2018-01-13] MEDS: PYRIDOXINE 50 MG TAB PO SCH ×2 (09:08→21:41)
[2018-01-13] MEDS: DOXYCYCLINE MONOHYDRATE 100 MG CAPSULE PO SCH ×2 (09:08→21:41)
[2018-01-13] MEDS: SERTRALINE 50 MG TAB PO SCH (09:08)
[2018-01-13] MEDS: PANTOPRAZOLE 40 MG TABLET PO SCH (09:08)
[2018-01-13 09:33] LABS: HCT 38.8 % (34.0-46.0); HGB 13.2 gm/dL (11.4-16.0); MCH 34.5 pg (25.0-35.0); MCHC 34.1 g/dL (31.0-37.0); MCV 101.1 fL (80.0-100.0); Macrocytosis Slight; Mean Platelet Volume 7.3; Platelet Count 230 k/uL (150-450); RBC 3.84 m/uL (3.80-5.40); RDW 14.1 % (11.5-15.5); WBC 5.1 k/uL (3.8-10.6)
[2018-01-13 09:39] LABS: Anion Gap 9 mmol/L; Blood Urea Nitrogen 17 mg/dL (7-17); Calcium 8.4 mg/dL (8.4-10.2); Carbon Dioxide 22 mmol/L (22-30); Chloride 94 mmol/L (98-107); Glucose 168 mg/dL (74-99); Potassium 4.5 mmol/L (3.5-5.1); Sodium 125 mmol/L (137-145)
--- NOTE | 2018-01-13 10:25 | P.PN ---
Subjective Progress Note Date: 01/13/18 Principal diagnosis: Acute COPD exacerbation complicated by tracheobronchitis Pulmonary consult dated 01/12/2018 67-year-old female with history of COPD and lung cancer. She is well-known to me and I did see her in the office over the last week or 2. She has a history of quite severe COPD and a history of lung cancer. She presents to the emergency department with increasing shortness of breath. She apparently called the office and stated she wasn't getting better despite the fact that we gave her Depo-Medrol prednisone and antibiotics. She was seen in the emergency room by Dr. Rodriguez admitted to the hospital for diagnosis of COPD exacerbation. She was diagnosed with lung cancer by me back in March 2017. The patient had been receiving chemotherapy. The patient denies any fever or chills. No chest pain. Coughing but not producing much phlegm. Other available wheezing. Certainly short of breath. She has a history of COPD, hypertension, lung cancer , osteoporosis, and hypothyroidism. On 01/13/2018 patient seen in follow-up. She is resting in bed, she states there are some improvement in her breathing, lung sounds still positive for some scattered wheezes, but appears to be improved from yesterday's exam. Patient is now bringing up some yellow colored phlegm. Dyspneic with exertion. But overall improving. Afebrile, vital signs are stable, she is currently on 2 L per nasal cannula with O2 sat 98%. labs show no evidence of leukocytosis, hemoglobin is 13.2, sodium is 125, potassium is 4.5, chloride is 94. BUN 17 creatinine 0.43. Patient continues on IV Solu-Medrol 60 every 6 hours, nebulized bronchodilators, DuoNeb, Pulmicort and Perforomist, and doxycycline. Objective - Vital Signs Vital signs: Vital Signs Temp 97.5 F L 01/13/18 06:44 Pulse 106 H 01/13/18 07:58 Resp 18 01/13/18 06:44 BP 134/77 01/13/18 06:44 Pulse Ox 98 01/13/18 07:37 Intake & Output 01/12/18 01/13/18 01/13/18 18:59 06:59 18:59 Intake Total 236 1080 Balance 236 1080 Intake: Oral 236 1080 Other: Voiding Method Toilet Toilet # Voids 1 1 1 - Exam GENERAL EXAM: Alert, cachectic looking 67-year-old white female comfortable in no apparent distress. HEAD: Normocephalic/atraumatic. EYES: Normal reaction of pupils, equal size. Conjunctiva pink, sclera white. NOSE: Clear with pink turbinates. THROAT: No erythema or exudates. NECK: No masses, no JVD, no thyroid enlargement, no adenopathy. CHEST: No chest wall deformity. Symmetrical expansion. LUNGS: Equal air entry with scattered wheezes CVS: Regular rate and rhythm, normal S1 and S2, no gallops, no murmurs, no rubs ABDOMEN: Soft, nontender. No hepatosplenomegaly, normal bowel sounds, no guarding or rigidity. EXTREMITIES: No clubbing, no edema, no cyanosis, 2+ pulses and upper and lower extremities. MUSCULOSKELETAL: Muscle strength and tone normal. SPINE: No scoliosis or deformity SKIN: No rashes CENTRAL NERVOUS SYSTEM: Alert and oriented -3. No focal deficits, tone is normal in all 4 extremities. PSYCHIATRIC: Alert and oriented -3. Appropriate affect. Intact judgment and insight. - Labs CBC & Chem 7: 01/13/18 09:07 01/13/18 09:07 Labs: Abnormal Lab Results - Last 24 Hours (Table) 01/13/18 01/13/18 Range/Units 09:07 09:07 MCV 101.1 H (80.0-100.0) fL Sodium 125 L (137-145) mmol/L Chloride 94 L (98-107) mmol/L Creatinine 0.43 L (0.52-1.04) mg/dL Glucose 168 H (74-99) mg/dL Microbiology - Last 24 Hours (Table) 01/11/18 16:10 Blood Culture - Preliminary Blood No Growth after 24 hours Assessment and Plan Plan: Assessment: COPD exacerbation complicated by tracheobronchitis. History of lung cancer History of hypothyroidism History of hypertension History of osteoporosis Hyponatremia Ongoing tobacco use with nicotine addiction Plan Continue current plan of treatment, patient is improving, continue IV Solu- Medrol, empiric antibiotics, and bronchodilator treatments. Patient could be considered for discharge in the 24 hours, she continues to improve. I performed a history & physical examination of the patient and discussed their management with my nurse practitioner, Gretel Najera. I reviewed the nurse practitioner's note and agree with the documented findings and plan of care. Lung sounds are positive for scattered wheezes. The findings and the impression was discussed with the patient. I attest to the documentation by the nurse practitioner. Time with Patient: Less than 30
--- NOTE | 2018-01-13 13:47 | P.PN ---
Subjective 67-year-old female admitted for acute hypercapnic respiratory failure secondary to COPD exacerbation patient continues to wheeze Patient's hyponatremia improved patient's urinary sodium is only 8 consistent with hypovolemic hyponatremia. Continue with IV fluids. As per the patient shortness of breath improved. 01/13/2018 Patient is still wheezing quite a bit getting short of breath walking to bathroom. Constitutional: Denied any fatigue denied any fever. Cardio vascular: denied any chest pain, palpitations Gastrointestinal denied any nausea vomiting Pulmonary: As mentioned in the interval history Neurologic denied any new focal deficits Objective - Vital Signs Vital signs: Vital Signs Temp 97.5 F L 01/13/18 06:44 Pulse 105 H 01/13/18 11:33 Resp 18 01/13/18 11:33 BP 134/77 01/13/18 06:44 Pulse Ox 98 01/13/18 11:23 Intake & Output 01/12/18 01/13/18 01/13/18 18:59 06:59 18:59 Intake Total 236 1080 Balance 236 1080 Weight 44.906 kg Intake: Oral 236 1080 Other: Voiding Method Toilet Toilet # Voids 1 1 1 - Exam PHYSICAL EXAMINATION: GENERAL: The patient is alert and oriented x3, not in any acute distress. Thin built cachectic on oxygen HEENT: Pupils are round and equally reacting to light. EOMI. No scleral icterus. No conjunctival pallor. Normocephalic, atraumatic. No pharyngeal erythema. No thyromegaly. CARDIOVASCULAR: S1 and S2 present. No murmurs, rubs, or gallops. PULMONARY: Decreased air entry into bilateral lung botello expiratory wheezing was appreciated. ABDOMEN: Soft, nontender, nondistended, normoactive bowel sounds. No palpable organomegaly. MUSCULOSKELETAL: No joint swelling or deformity. EXTREMITIES: No cyanosis, clubbing, or pedal edema. NEUROLOGICAL: Gross neurological examination did not reveal any focal deficits. SKIN: No rashes. - Labs CBC & Chem 7: 01/13/18 09:07 01/13/18 09:07 Labs: Abnormal Lab Results - Last 24 Hours (Table) 01/13/18 01/13/18 Range/Units 09:07 09:07 MCV 101.1 H (80.0-100.0) fL Sodium 125 L (137-145) mmol/L Chloride 94 L (98-107) mmol/L Creatinine 0.43 L (0.52-1.04) mg/dL Glucose 168 H (74-99) mg/dL Microbiology - Last 24 Hours (Table) 01/11/18 16:10 Blood Culture - Preliminary Blood No Growth after 24 hours Assessment and Plan Plan: -Shortness of breath: Secondary to COPD exacerbation patient has systemic steroids and elevation of inhalational treatments to be continued and Bactrim discontinued, patient is on doxycycline will be continued -Hyponatremia probably secondary to hydrochlorothiazide as well as Bactrim both of which will be discontinued and patient was started on IV fluids and we will with improved sodium patient probably has hypovolemic hyponatremia patient's urinary sodium is only 8, continue with IV fluids -Continued and he could use: Counseling was provided -Non-small cell lung cancer: Patient is receiving chemotherapy which will be continued. -Hypertension -Hypothyroidism: TSH to normal. Continue with levothyroxine
[2018-01-14] MEDS: IPRATROPIUM-ALBUTEROL 3 ML NEB INHALATION SCH ×5 (00:08→15:43)
[2018-01-14] MEDS: SODIUM CHLORIDE 0.9% 1,000 ML IV SCH ×2 (00:52→11:02)
[2018-01-14] MEDS: Acetaminophen-Codeine 300-30mg TAB PO PRN ×2 (05:33→12:00)
[2018-01-14] MEDS: LORazepam 0.5 MG TAB PO PRN ×2 (05:33→12:02)
[2018-01-14] MEDS: methylPREDNISolone SOD SUCCI 125 MG/2 ML VIAL IV SCH ×2 (06:35→11:02)
[2018-01-14] MEDS: LEVOTHYROXINE 25 MCG TAB PO SCH (06:37)
[2018-01-14] MEDS: FORMOTEROL FUMARATE 20 MCG/2 ML NEBU INHALATION SCH (07:33)
[2018-01-14] MEDS: BUDESONIDE 1 MG/2 ML NEBU INHALATION SCH (07:33)
[2018-01-14] MEDS: PYRIDOXINE 50 MG TAB PO SCH (08:32)
[2018-01-14] MEDS: PANTOPRAZOLE 40 MG TABLET PO SCH (08:32)
[2018-01-14] MEDS: DOXYCYCLINE MONOHYDRATE 100 MG CAPSULE PO SCH (08:32)
[2018-01-14] MEDS: NICOTINE 21MG/24HR PATCH TRANSDERM SCH (08:32)
[2018-01-14] MEDS: SERTRALINE 50 MG TAB PO SCH (08:32)
[2018-01-14] MEDS: LORATADINE 10 MG TAB PO SCH (08:32)
[2018-01-14 09:48] LABS: HGB 13.4 gm/dL (11.4-16.0); MCH 34.7 pg (25.0-35.0); MCHC 34.3 g/dL (31.0-37.0); Mean Platelet Volume 7.1; Platelet Count 203 k/uL (150-450); RBC 3.86 m/uL (3.80-5.40); RDW 13.8 % (11.5-15.5); WBC 5.9 k/uL (3.8-10.6)
[2018-01-14 10:17] LABS: Anion Gap 7 mmol/L; Blood Urea Nitrogen 20 mg/dL (7-17); Calcium 8.2 mg/dL (8.4-10.2); Carbon Dioxide 23 mmol/L (22-30); Chloride 95 mmol/L (98-107); Glucose 132 mg/dL (74-99); Potassium 4.6 mmol/L (3.5-5.1); Sodium 125 mmol/L (137-145)
--- NOTE | 2018-01-14 10:55 | P.PN ---
Subjective Progress Note Date: 01/14/18 Principal diagnosis: Acute COPD exacerbation complicated by tracheobronchitis Pulmonary consult dated 01/12/2018 67-year-old female with history of COPD and lung cancer. She is well-known to me and I did see her in the office over the last week or 2. She has a history of quite severe COPD and a history of lung cancer. She presents to the emergency department with increasing shortness of breath. She apparently called the office and stated she wasn't getting better despite the fact that we gave her Depo-Medrol prednisone and antibiotics. She was seen in the emergency room by Dr. Rodriguez admitted to the hospital for diagnosis of COPD exacerbation. She was diagnosed with lung cancer by me back in March 2017. The patient had been receiving chemotherapy. The patient denies any fever or chills. No chest pain. Coughing but not producing much phlegm. Other available wheezing. Certainly short of breath. She has a history of COPD, hypertension, lung cancer , osteoporosis, and hypothyroidism. On 01/13/2018 patient seen in follow-up. She is resting in bed, she states there are some improvement in her breathing, lung sounds still positive for some scattered wheezes, but appears to be improved from yesterday's exam. Patient is now bringing up some yellow colored phlegm. Dyspneic with exertion. But overall improving. Afebrile, vital signs are stable, she is currently on 2 L per nasal cannula with O2 sat 98%. labs show no evidence of leukocytosis, hemoglobin is 13.2, sodium is 125, potassium is 4.5, chloride is 94. BUN 17 creatinine 0.43. Patient continues on IV Solu-Medrol 60 every 6 hours, nebulized bronchodilators, DuoNeb, Pulmicort and Perforomist, and doxycycline. On 01/14/2017 patient seen in follow-up. She continues to improve, less dyspneic, less wheezy less congested on today's exam. On 2 L per nasal cannula with O2 sat 98%. Vital signs are stable, respirations are even and nonlabored. Afebrile. Blood cultures are negative to date. No acute event overnight, home oxygen is being arranged for the patient, patient did desaturate to 84% on room air. Patient has been treated with steroids, nebulized bronchodilators, and empiric antibiotics with doxycycline. She is improving, and is stable for discharge home from pulmonary standpoint. Objective - Vital Signs Vital signs: Vital Signs Temp 97.0 F L 01/14/18 06:21 Pulse 106 H 01/14/18 07:58 Resp 20 01/14/18 08:30 BP 142/77 01/14/18 06:21 Pulse Ox 98 01/14/18 07:36 Intake & Output 01/13/18 01/14/18 01/14/18 18:59 06:59 18:59 Intake Total 850 1200 400 Balance 850 1200 400 Weight 44.906 kg 44.906 kg Intake: Oral 850 1200 400 Other: Voiding Method Toilet Toilet # Voids 1 1 - Exam GENERAL EXAM: Alert, cachectic looking 67-year-old white female comfortable in no apparent distress. HEAD: Normocephalic/atraumatic. EYES: Normal reaction of pupils, equal size. Conjunctiva pink, sclera white. NOSE: Clear with pink turbinates. THROAT: No erythema or exudates. NECK: No masses, no JVD, no thyroid enlargement, no adenopathy. CHEST: No chest wall deformity. Symmetrical expansion. LUNGS: Equal air entry with scattered wheezes CVS: Regular rate and rhythm, normal S1 and S2, no gallops, no murmurs, no rubs ABDOMEN: Soft, nontender. No hepatosplenomegaly, normal bowel sounds, no guarding or rigidity. EXTREMITIES: No clubbing, no edema, no cyanosis, 2+ pulses and upper and lower extremities. MUSCULOSKELETAL: Muscle strength and tone normal. SPINE: No scoliosis or deformity SKIN: No rashes CENTRAL NERVOUS SYSTEM: Alert and oriented -3. No focal deficits, tone is normal in all 4 extremities. PSYCHIATRIC: Alert and oriented -3. Appropriate affect. Intact judgment and insight. - Labs CBC & Chem 7: 01/14/18 08:59 01/14/18 08:59 Labs: Abnormal Lab Results - Last 24 Hours (Table) 01/14/18 01/14/18 Range/Units 08:59 08:59 MCV 101.0 H (80.0-100.0) fL Sodium 125 L (137-145) mmol/L Chloride 95 L (98-107) mmol/L BUN 20 H (7-17) mg/dL Creatinine 0.38 L (0.52-1.04) mg/dL Glucose 132 H (74-99) mg/dL Calcium 8.2 L (8.4-10.2) mg/dL Microbiology - Last 24 Hours (Table) 01/11/18 16:10 Blood Culture - Preliminary Blood No Growth after 48 hours Assessment and Plan Plan: Assessment: COPD exacerbation complicated by tracheobronchitis. History of lung cancer History of hypothyroidism History of hypertension History of osteoporosis Hyponatremia Ongoing tobacco use with nicotine addiction Plan Patient continues to improve, less dyspneic, less wheezy . She did qualify for home oxygen. She was treated with a combination of IV steroids, nebulized bronchodilators, and empiric antibiotics. Patient is stable for discharge home from pulmonary standpoint, follow-up with Dr. Lucia in the office in 7-10 days. I performed a history & physical examination of the patient and discussed their management with my nurse practitioner, Gretel Najera. I reviewed the nurse practitioner's note and agree with the documented findings and plan of care. Lung sounds are positive for minimal wheezes. The findings and the impression was discussed with the patient. I attest to the documentation by the nurse practitioner. Time with Patient: Less than 30
[2018-01-14] MEDS ORDERED: RX INFO: IV CONTRAST WAS GIVEN 1 EACH MISC MISCELLANE PRN (13:59)
--- NOTE | 2018-01-14 14:11 | P.DS ---
Providers Date of admission: 01/11/18 18:29 Attending physician: Shade Liz Consults: 01/11/18 18:33 Consult Physician Routine Consulting Provider: Miguel A Lucia Consult Reason/Comments: COPD, lung cancer Do you want consulting provider notified?: Yes Primary care physician: Miguel A Lucia [facility] Course: 67-year-old female admitted for acute hypercapnic respiratory failure secondary to COPD exacerbation patient continues to wheeze Patient's hyponatremia improved patient's urinary sodium is only 8 consistent with hypovolemic hyponatremia. Continue with IV fluids. As per the patient shortness of breath improved. 01/13/2018 Patient is still wheezing quite a bit getting short of breath walking to bathroom. 01/14/2018 Patient doesn't have any wheezing still tachycardic is requiring 2 L of oxygen because of tachycardia and hypoxemia I'll get a CT angios the chest if that's negative patient will be discharged if that's positive patient was discharged on anticoagulation. Patient wanted to go home and the pulmonology cleared her for discharge. Patient was started on metoprolol for her tachycardia patient is sinus tachycardia. Hyponatremia improved but the still remains bit hyponatremic there may be a competent of SIADH patient will be advised to follow fluid restriction and follow with nephrology as an outpatient and a basic metabolic profile as an outpatient. PHYSICAL EXAMINATION: GENERAL: The patient is alert and oriented x3, not in any acute distress. Thin built cachectic on oxygen HEENT: Pupils are round and equally reacting to light. EOMI. No scleral icterus. No conjunctival pallor. Normocephalic, atraumatic. No pharyngeal erythema. No thyromegaly. CARDIOVASCULAR: S1 and S2 present. No murmurs, rubs, or gallops. Decre PULMONARY: Decreased air entry into bilateral lung botello no wheezing was appreciated today is clear today. ABDOMEN: Soft, nontender, nondistended, normoactive bowel sounds. No palpable organomegaly. MUSCULOSKELETAL: No joint swelling or deformity. EXTREMITIES: No cyanosis, clubbing, or pedal edema. NEUROLOGICAL: Gross neurological examination did not reveal any focal deficits. SKIN: No rashes. Assessment and Plan Plan: -Shortness of breath: Secondary to COPD exacerbation, we will rule out pulmonary embolism before her discharge the CT angios the chest. -Hyponatremia probably secondary to hydrochlorothiazide as well as Bactrim both of which will be discontinued, improved with IV fluids initially and they remained stable after that at 125 fluid restriction at home along with the follow-up with nephrology as an outpatient -Non-small cell lung cancer: Patient is receiving chemotherapy which will be continued. -Hypertension -Hypothyroidism: TSH to normal. Continue with levothyroxine Patient Condition at Discharge: Stable Plan - Discharge Summary Discharge Rx Participant: Yes New Discharge Prescriptions: New Doxycycline Monohydrate [Monodox] 100 mg PO Q12HR #6 cap predniSONE 10 mg PO DAILY #30 tab Metoprolol Tartrate 25 mg PO BID #60 tab Discontinued Sulfamethox-Tmp 800-160Mg [Bactrim DS 800-160 mg] 1 tab PO BID predniSONE 10 mg PO DAILY Lisinopril-Hctz 20-25 mg [Zestoretic 20-25] 1 tab PO DAILY No Action Levothyroxine Sodium [Synthroid] 25 mcg PO DAILY Loratadine [Claritin] 10 mg PO DAILY Fluticasone/Salmeterol [Advair 500-50 Diskus] 1 inhalation PO RT-BID Tiotropium [place] [Spiriva] 1 cap INHALATION RT-DAILY Albuterol Nebulized [Ventolin Nebulized] 2.5 mg INHALATION RT-Q6H PRN PRN Reason: Shortness Of Breath Albuterol Inhaler [Ventolin Hfa Inhaler] 1 - 2 puff INHALATION Q6HR PRN PRN Reason: Shortness Of Breath Sertraline [Zoloft] 50 mg PO DAILY Pyridoxine [Vitamin B-6] 50 mg PO BID LORazepam [Ativan] 0.5 mg PO Q6H PRN PRN Reason: Anxiety Acetaminophen-Codeine 300-30mg [Tylenol #3] 1 tab PO Q6H PRN PRN Reason: Pain Discharge Medication List Levothyroxine Sodium [Synthroid] 25 mcg PO DAILY 08/14/14 [History] Loratadine [Claritin] 10 mg PO DAILY 08/14/14 [History] Albuterol Nebulized [Ventolin Nebulized] 2.5 mg INHALATION RT-Q6H PRN 07/03/17 [ History] Fluticasone/Salmeterol [Advair 500-50 Diskus] 1 inhalation PO RT-BID 07/03/17 [ History] Tiotropium [place] [Spiriva] 1 cap INHALATION RT-DAILY 07/03/17 [History] Acetaminophen-Codeine 300-30mg [Tylenol #3] 1 tab PO Q6H PRN 01/11/18 [History] Albuterol Inhaler [Ventolin Hfa Inhaler] 1 - 2 puff INHALATION Q6HR PRN [History] LORazepam [Ativan] 0.5 mg PO Q6H PRN 01/11/18 [History] Pyridoxine [Vitamin B-6] 50 mg PO BID 01/11/18 [History] Sertraline [Zoloft] 50 mg PO DAILY 01/11/18 [History] Doxycycline Monohydrate [Monodox] 100 mg PO Q12HR #6 cap 01/14/18 [Rx] Metoprolol Tartrate 25 mg PO BID #60 tab 01/14/18 [Rx] predniSONE 10 mg PO DAILY #30 tab 01/14/18 [Rx] Follow up Appointment(s)/Referral(s): Miguel A Lucia DO [Primary Care Provider] - 1-2 days (Patient wants to make own appointment. ) [facility], [NON-STAFF] - Patient Instructions/Handouts: COPD (Chronic Obstructive Pulmonary Disease) (DC ) Activity/Diet/Wound Care/Special Instructions: Cardiac diet. Activity as tolerated. Fall precautions. NO smoking, cessation information already provided.
--- NOTE | 2018-01-14 15:38 | CT ---
EXAMINATION TYPE: CT angio chest DATE OF EXAM: 01/14/2018 3:24 PM COMPARISON: 06/17/2017 HISTORY: SOB, R/O PE CT DLP: 165.2 mGycm Automated exposure control for dose reduction was used. CONTRAST: CTA scan of the thorax is performed with IV Contrast, patient injected with 70 mL of Isovue 300, pulm onary embolism protocol. . FINDINGS: LUNGS: Superimposed upon a background of moderate centrilobular emphysematous changes and peripheral basilar intralobular septal thickening with few areas of early honeycombing in the lingula suggesting UIP pattern of pulmonary process there is a right upper lobe spiculated nodule. Additional spiculate d density in the left upper lobe extending to the pleura stable. Large calcified nodule right lower l obe is stable. Spiculated mass right lower lobe or consolidation appears to be new from the prior is exam measuring 1.9 x 1.9 cm. MEDIASTINUM: Extensive left supraclavicular adenopathy is also seen with mass effect upon the left lo be of the thyroid. Conglomeration of lymph nodes measures approximately 3.7 x 3.1 cm on series 3 imag e 7 creating mass effect upon the left subclavian artery with smaller more superior and anterior lymp h nodes also seen in the left supraclavicular region. Minimally enlarged 1.2 cm short axis right roxanne r lymph node is seen and prominent but nonenlarged subcarinal lymph node is present. Central calcific ation is seen within an inferior right hilar node near the azygos esophageal recess. No axillary or i nternal mammary adenopathy is seen. No epicardial adenopathy. There is a suggestion of a tiny filling defect within the upper branch of the left pulmonary artery. Pretracheal lymphadenopathy or mass measuring 4 x 3.1 x 4.5 cm stable. OTHER: Multilevel degenerative disc disease noted. Rib deformity on the left suggest remote trauma. Appears to be subcutaneous edema diffusely correlate for anasarca.. IMPRESSION: 1. Findings are suspicious for a tiny pulmonary embolism left upper lobe branch 2. Bilateral suspected pulmonary masses with supraclavicular and mediastinal adenopathy. Correlate fo r a malignancy. 3. Severe emphysematous changes.
[2018-01-14 15:42] VITALS: BP 127/73; RESP 20; TEMP 98.4
[2018-01-14 15:56] VITALS: PULSE 112
== END 2018-01-14 17:13 | disposition home health service (06) | DRG 189 ==
LOC: EC 15:49 → 4MS4W 18:29
PROVIDERS: ADMIT Internal Medicine; ATTEND Internal Medicine
DX: J96.01 Acute respiratory failure with hypoxia (principal); J44.1 Chronic obstructive pulmonary disease with (acute) exacerbation; C34.90 Malignant neoplasm of unspecified part of unspecified bronchus or lung; E22.2 Syndrome of inappropriate secretion of antidiuretic hormone; J96.02 Acute respiratory failure with hypercapnia; T50.2X5A Adverse effect of carbonic-anhydrase inhibitors, benzothiadiazides and other diuretics, initial encounter; I10 Essential (primary) hypertension; E03.9 Hypothyroidism, unspecified; R13.10 Dysphagia, unspecified; M81.0 Age-related osteoporosis without current pathological fracture; K21.9 Gastro-esophageal reflux disease without esophagitis; M19.012 Primary osteoarthritis, left shoulder; M19.011 Primary osteoarthritis, right shoulder; F32.9 Major depressive disorder, single episode, unspecified; F17.200 Nicotine dependence, unspecified, uncomplicated; R00.0 Tachycardia, unspecified; M16.0 Bilateral primary osteoarthritis of hip; H26.9 Unspecified cataract; Z87.19 Personal history of other diseases of the digestive system; Z90.710 Acquired absence of both cervix and uterus; Z79.899 Other long term (current) drug therapy; Z79.890 Hormone replacement therapy; Z79.52 Long term (current) use of systemic steroids
CPT/HCPCS: 36415; 71046; 71275; 80048; 80053; 82550; 82553; 83735; 83930; 83935; 84300; 84443; 84484; 85025; 85027; 85379; 85610; 85730; 87040; 93005; 94640; 94760; 96365; 96375; 99291